=== PATIENT | male | born 1980 | race Hispanic/Latino ===

== ENCOUNTER 2017-02-16 09:29 | Inpatient (IN) | payer MEDICAID, OTHER ==
[~2017-02-16] VITALS: Ht 180.3 cm; Wt 81.2 kg
[~2017-02-16 09:29] MED LIST: HYDR-656 PO; TRAZ-115 PO
[2017-02-16 09:37] VITALS: BP 127/77; PULSE 83; RESP 16; O2SAT 98
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
[2017-02-16 11:12] LABS: BASOPHILS % (AUTO) 0.3 % (0-3); EOSINOPHILS % (AUTO) 2.4 % (0-5); MONOCYTES % (AUTO) 11.6 % (4-12); Mean Corpuscular Hemoglobin 33.1 pg (27.0-35.0); NEUTROPHILS % (AUTO) 67.7 % (40-74); Platelet Count 232 bil/L (150-400)
[2017-02-16 13:30] VITALS: BP 118/68; PULSE 54; RESP 18; O2SAT 98
[2017-02-16] MEDS ORDERED: hydrOXYzine Pamoate 25 mg Capsule PO PRN (14:45)
[2017-02-16] MEDS ORDERED: Alum-Mag Hydrox-Simeth 30 mL Suspension PO PRN (14:45)
[2017-02-16] MEDS ORDERED: Magnesium Hydroxide 10 mL Oral Concentration PO PRN (14:45)
[2017-02-16] MEDS ORDERED: Benzocaine-Menthol Lozenge 2/Pkg PO PRN (14:45)
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
[2017-02-16 16:53] VITALS: BP 115/63; PULSE 55; RESP 14; O2SAT 98
[2017-02-16 16:59] VITALS: BP 115/63; PULSE 55; RESP 14; O2SAT 98
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
[2017-02-16 19:02] VITALS: BP 112/62; PULSE 84; RESP 16
--- NOTE | 2017-02-16 20:52 | NUR ---
Observations 00 - 0 Pt arrived on unit at 1645 in wheelchair with ED staff. Pt signed all paperwork and was oriented to the unit. Pt was assigned to room 227. Pt changed into scrubs, talked to RN and then rested in bed. Pt affect and mood flat, guarded and isolative. Pt was pleasant, friendly, polite and cooperative when approached. Pt attended dinner in [employer] and ate 100%. Pt ate snack. Pt was observed every 15 minutes through the shift as ordered. Pt is currently resting in bed, respirations apparent.
--- NOTE | 2017-02-17 05:39 | NUR ---
nursing, nights, 11-7 s/o- has appeared to sleep after 0. up briefly for water at 0245. assessed q 15 minutes. a- no apparent distress. p- monitor behavior/emotional state, quality, times and amount of sleep, use and effect of medication. jh
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
[2017-02-17 14:04] VITALS: BP 120/77; PULSE 93; RESP 18
--- NOTE | 2017-02-17 18:09 | NUR ---
[facility] Day Shift Pt maintained behavioral control throughout the shift. Pt affect appears mostly flat. Pt spends most of the shift resting in his room. Pt is appropriate with staff and peers when active on the unit, but is not overly social. Pt spends some time in the AM making phone calls to family members, which appeared difficult for pt (pt visibly tearful). Pt has not engaged in any unit activities throughout the shift. Pt attended all meals and ate approx 100% of all meals.
--- NOTE | 2017-02-17 18:43 | NUR ---
Nursing Notes [id number] S: "I am feeling sweaty, you know, from the withdrawals. I have tremors and nightmares, too, but I am ok". O: Patient isolating in room, up for meals only. Patient refusing meds for anxiety. Rates anxiety as 2/10, depression 6/10, denies auditory/visual hallucinations and suicidal/homicidal ideation. Reporting nightmares. A: Cooperative, pleasant, tremulous, isolative. P: Monitor for safety and response to treatment. Follow plan of care.
--- NOTE | 2017-02-17 20:08 | NUR ---
Automatic Dry Starch Operator/Counselor: S/O:Patient denies S/I and H/I. He also denies auditory and visual hallucinations. Depression is 6/10 and anxiety is 2/10. A: Patient is cooperative, tearful, distressed, depressed, anxious, limited insight, limited judgment. P: Follow the care plan, coordinate with out-patient providers.
--- NOTE | 2017-02-18 05:20 | NUR ---
nursing, nights, 11-7 s/o- has appeared to sleep after 2114 during q 15 minute assessments. a- no apparent distress. p- monitor behavior/emotional state, quality, times and amount of sleep, use and effect of medication. jh
[2017-02-18 10:15] VITALS: BP 140/90; PULSE 74; RESP 18
[2017-02-18] MEDS ORDERED: .Epic Conversion Completed XX PRN (11:00)
--- NOTE | 2017-02-18 11:42 | PCM.DIMED ---
Discharge Instructions Date of Service Feb 18, 2017 Dates of Hospitalization Feb 16, 2017 at 16:45 Discharge Diagnosis Discharge Diagnosis PTSD chronic Generalized Anxiety DO Polysusbstance Use DO with both Methamphetamine and Heroin Diet Discharge Diet: No restrictions Activity Discharge Activity: No restrictions Mario Alberto Adonishiwot Rangel DO Feb 18, 2017 11:42
[2017-02-18] MEDS ORDERED: MIRT15TA6 PO (11:43)
[2017-02-18 12:10] VITALS: BP 116/64; PULSE 67; RESP 15
--- NOTE | 2017-02-18 12:48 | NUR ---
Observations 0700- 1900 Pt set a daily goal to talk to doctor. Pt ate a snack and 100% of breakfast and lunch. Pt showered. Pt is pleasant and cooperative and mildly social with staff and peers. Pt spends morning mostly resting in bed. Pt is currently in TV area watching a movie. No abnormal behavior was noticed. Staff completed 15 min close observations as ordered.
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
--- NOTE | 2017-02-18 14:30 | NUR ---
Discharge Patient ambulated from unit, accompanied by staff to meet [facility] by emergency room. [facility] will transport patient to [facility]. Patient then plans to fly out to [place] to live with mom on Mon or . Prior to discharge, patient reported "I am not having nightmares, tremors or sweats today, I feel ready to go". Patient denies current anxiety, depression, SI/HI or hallucinations. Discharge instructions/medications reviewed with patient prior to discharge. All questions addressed. Patient belongings, discharge instructions and prescriptions in hand. Patient to set up appointments after arriving in [place].
--- NOTE | 2017-02-18 15:10 | NUR ---
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 Depression rated at 1/10 and anxiety at 3-4/10. A: Patient will discharge into the care of his uncle, and will fly to [place] next week to live with his mom. Patients mom is in the process of finding follow up care in [place]. Patient has safety plan and all necessary discharge paperwork. P: Follow care plan and coordinate with outpatient providers.
== END 2017-02-18 14:30 | disposition home or self-care (01) | DRG 882 ==
LOC: SED 09:29 → UNDOADMIN 14:56 → MHC 14:56
PROVIDERS: ADMIT Psychiatry & Neurology Psychiatry; ATTEND Psychiatry & Neurology Psychiatry
DX: F43.12 Post-traumatic stress disorder, chronic (principal); F33.2 Major depressive disorder, recurrent severe without psychotic features; R45.851 Suicidal ideations; F41.1 Generalized anxiety disorder; F17.210 Nicotine dependence, cigarettes, uncomplicated; Z91.410 Personal history of adult physical and sexual abuse; Z59.0 Homelessness; F19.10 Other psychoactive substance abuse, uncomplicated